=== PATIENT | male | born 1950 | race Caucasian/White ===

== ENCOUNTER 2017-12-01 19:15 | Emergency (ER) | payer OTHER, MEDICARE ==
[~2017-12-01] VITALS: Ht 175.3 cm; Wt 77.5 kg
[2017-12-01 19:24] VITALS: Ht 175.3 cm; Wt 77.5 kg
--- NOTE | 2017-12-01 20:13 | DIAGNOSTIC IMAGING REPORT ---
R SHOULDER MIN 2 VIEWS ROUTINE CLINICAL HISTORY: RIGHT WITH Y VIEW, PAIN COMPARISON: None. DISCUSSION: The bones and joint spaces appear intact. There is no evidence of fracture, dislocation or bony disease. There is evidence for calcific supraspinatus tendinitis. No evidence for fracture or dislocation. IMPRESSION: Calcific supraspinatus tendinitis. The above report was generated using voice recognition software. It may contain grammatical, syntax or spelling errors. Electronically signed by: Kemal Palafox M.D. 12/01/2017 8:12 PM Dictated Date/Time: 12/01/2017 8:11 PM
[2017-12-01] MEDS ORDERED: METH4PAK PO (20:52)
[2017-12-01] MEDS ORDERED: OXYC1TAB3 PO (20:52)
--- NOTE | 2017-12-01 20:52 | EMERGENCY ROOM VISIT NOTE ---
ED Visit Note First contact with patient: 19:36 CHIEF COMPLAINT: Right shoulder pain 5 days HISTORY OF PRESENT ILLNESS: Patient is a wcyh-ilkf-jcksexjm 5 days. 67-year- old male who presents emergency department for evaluation of right shoulder pain he reports that he was pulling his bag out of the overhead compartment of an airplane, and afterwards, he noticed a deep aching pain in the anterior right shoulder. He describes the pain as a dull ache constantly, but becomes sharp with certain movements. It is located in the anterior lateral shoulder, radiates to his ear and down to his fingers. It hurts to lay on the right side. He has been taking Tylenol and applying Arnica to the area but his symptoms are not improving. He presently rates his pain a 6/10. He denies any prior right shoulder disease. He denies any numbness or weakness. He denies any midline neck pain. REVIEW OF SYSTEMS: Review of systems as per HPI. All other systems reviewed were negative. 10 systems reviewed. PMH: Electronic medical records are reviewed and summarized as above/below. See Problem List. SOCIAL HISTORY: Patient lives at home with his in [place], he is here locally for a family event. Non-smoker. PHYSICAL EXAM: Vital Signs: Reviewed nurse's notes. Patient is a pleasant, well -appearing 67-year-old white male who is awake and alert and in no acute distress. MUSCULOSKELETAL: Examination of the right shoulder does not reveal any obvious deformity. He has some tightness in the right trapezius, but no focal spasm, no significant tenderness to palpation. There is no pain over the spinous processes of the cervical spine or in the cervical paraspinous distribution. He does not have any pain over the acromioclavicular joint, reproducible discomfort over the proximal biceps tendon in the rotator cuff insertion. Passively he can be internally rotated fully, has pain with full external range of motion, has pain with abduction greater than 90, but can forward flex to 180. Good rotator cuff strength testing, but has pain with this. Intrinsic hand strength is intact. Upper extremity DTRs are equal and symmetrical bilaterally. EMERGENCY DEPARTMENT COURSE: An X-ray of the right shoulder was obtained and noted calcific supraspinatus tendinitis. The patient was fitted with an arm sling. Treatment options were discussed with him. He is unable to take NSAIDs due to his warfarin therapy. He was agreeable to a short course of oral prednisone and will be placed on a Medrol Dosepak. He was also provided a small prescription for oxycodone to use for severe pain until he can return home to [place] and see orthopedics. Patient and his are comfortable with this. Differential diagnoses entertained included cervical radiculopathy, shoulder sprain, rotator cuff tear, subacromial bursitis, tendinitis, among others. R SHOULDER MIN 2 VIEWS ROUTINE CLINICAL HISTORY: RIGHT WITH Y VIEW, PAIN COMPARISON: None. DISCUSSION: The bones and joint spaces appear intact. There is no evidence of fracture, dislocation or bony disease. There is evidence for calcific supraspinatus tendinitis. No evidence for fracture or dislocation. IMPRESSION: Calcific supraspinatus tendinitis. Medication reconciliation: I attest that I have personally reviewed the patient' s current medication list. Blood pressure screening: Patient was found to have a slightly elevated blood pressure due to circumstances. I do not believe that the patient requires hypertension monitoring. Problem List Medical Problems: (1) Cerebrovascular disease Status: Chronic (2) Complete heart block Status: Resolved (3) Coronary artery vasospasm Status: Chronic (4) Dyslipidemia Status: Chronic (5) Hypertension Status: Chronic (6) Post traumatic stress disorder (PTSD) Status: Chronic (7) Seizure disorder Status: Chronic Surgical Problems: (1) Pacemaker Status: Chronic Current/Historical Medications Scheduled Methylprednisolone (Medrol Dosepak), 0 PO DAILY Scheduled PRN Oxycodone Immediate Rel Tab (Roxicodone Ir), 1-2 TAB PO Q4H PRN for Severe Pain Allergies Coded Allergies: No Known Allergies (Unverified , 12/01/17) Vital Signs Date Time Temp Pulse Resp B/P (MAP) Pulse Ox O2 Delivery O2 Flow Rate FiO2 12/01/17 19:24 36.7 99 18 155/93 94 Room Air Medications Administered Medications (Trade) Dose Ordered Sig/Walter Route Start Time Stop Time Status Last Admin Dose Admin Oxycodone HCl (Roxicodone Immediate Rel 5MG Home Pack) 1 homepack UD ONCE PO 12/01/17 21:00 12/01/17 21:01 DC 12/01/17 21:11 1 HOMEPACK Departure Information Impression Primary Impression: Calcific tendinitis of right shoulder Prescriptions Oxycodone Immediate Rel Tab (ROXICODONE IR) 5 Mg Tab 1-2 TAB PO Q4H Y for Severe Pain, #20 TAB For Initial Treatment Prov: Sangeetha Curran PA 12/01/17 Methylprednisolone (MEDROL DOSEPAK) 4 Mg Segun 0 PO DAILY, #1 PKT Once daily as directed. Prov: Sangeetha Curran PA 12/01/17 Referrals No Doctor, Assigned (PCP) Patient Instructions My [facility] Additional Instructions DO NOT drive, drink alcohol, operate machinery, or perform dangerous activities today. You were given medications in the ER that can affect your ability to safely function or operate a vehicle. Oxycodone (OxyIR) 5mg: Take 1-2 pills every four hours for breakthrough pain. Avoid alcohol, operating machinery or dangerous equipment, working on ladders or roofs, DRIVING, or situations where being under the influence may be dangerous. It is recommended to use an [id number] stool softener such as Colace, 100mg twice daily while taking this medication to avoid constipation. Medrol Dosepak: Once daily until the prescription is finished. It is best to take this earlier in the day as some patients note occasional difficulty falling asleep when taken in the late evening. Acetaminophen(Tylenol) may be used for fever or pain. Use 1000mg every six hours as needed. Avoid using more than 3000mg in a 24 hour period. This medication can be taken if you need to drive, work, or perform activities which may be dangerous when taking narcotic pain medication. Ice compresses for 20 minutes at a time four times daily for 2-3 days. Use the sling as instructed. Remove your arm from the sling 4-6 times a day and move all the joints around to keep them loose. Rest your injury. Continue current medications. Return to the ER immediately for any numbness, tingling, severe pain, extreme swelling in the extremity or as needed. Follow-up with orthopedic surgery of your choice when you return home for further care and management of your injury.
[2017-12-01] MEDS ORDERED: OXYCODONE IR HOME PACK PO ONE (21:00)
[2017-12-01 21:34] VITALS: BP 158/90; PULSE 84; TEMP 36.7; O2SAT 96
== END 2017-12-01 21:35 | disposition home or self-care (01) ==
LOC: C.EDB 19:18 → C.EDD 21:35
DX: M75.31 Calcific tendinitis of right shoulder (principal); E78.5 Hyperlipidemia, unspecified; I10 Essential (primary) hypertension; G40.909 Epilepsy, unspecified, not intractable, without status epilepticus; Z95.0 Presence of cardiac pacemaker